=== PATIENT | male | born 1950 | race Caucasian/White ===

== ENCOUNTER 2019-05-09 19:38 | Inpatient (IN) ==
[2019-05-09] MEDS ORDERED: NS 1,000 ML IV PRN (20:23)
--- NOTE | 2019-05-09 20:26 | Diag Imaging Result Doc PS360 ---
EXAM: CT HEAD W/O CONTRAST INDICATION: stroke like TECHNIQUE: This exam was performed using automated exposure control, adjustment of mA or kV according to patient size, and/or use of iterative reconstruction technique. COMPARISON: None. FINDINGS: There are chronic lacunar infarcts involving the right internal capsule and the left caudate head. There is no definite acute infarct given the limited sensitivity of CT versus MRI. There is no discrete intracranial mass, mass effect, or intracranial hemorrhage. The surrounding soft tissues and bony structures are essentially unremarkable. IMPRESSION: A couple of chronic lacunar infarcts bilaterally. No definite acute intracranial pathology by CT. Electronically signed by Prabhjot Gamez 05/09/2019 8:23 PM
[2019-05-09 21:16] LABS: BASO# 0.02 X1000 (0.0-0.2); BASO% 0.3 % (0.0-0.8); EOS# 0.09 X1000 (0.0-0.7); EOS% 1.2 % (0.0-10.0); HEMATOCRIT 35.5 % (42.0-52.0); HEMOGLOBIN 11.8 g/dL (14.0-18.0); IMM GRAN# 0.03 X1000 (0.0-0.04); IMM GRAN% 0.4 % (0.0-0.5); LYMPH# 3.21 X1000 (1.2-3.4); LYMPH% 42.3 % (20.5-51.1); MCH 27.1 PG (27-31); MCHC 33.2 g/dL (33-37); MCV 81.4 FL (81-99); MONO# 0.61 X1000 (0.11-0.59); MPV 10.7 FL (7.4-10.4); NEUT# 3.63 X1000 (1.4-6.5); NEUT% 47.8 % (42.2-75.2); PLT 284 X1000 (130-400); RBC 4.36 XMIL (4.7-6.1); RDW 14.6 % (11.5-14.5); WBC 7.59 X1000 (4.8-10.8)
[2019-05-09 21:24] LABS: URINE SOURCE CLEAN CATCH
[2019-05-09 21:25] LABS: BILIRUBIN URINE NEGATIVE (NEGATIVE); BLOOD URINE NEGATIVE (NEGATIVE); COLOR YELLOW; GLUCOSE URINE 200 mg/dL (NEGATIVE); KETONE URINE NEGATIVE (NEGATIVE); LEUKOCYTES URINE LARGE (NEGATIVE); NITRITE URINE NEGATIVE (NEGATIVE); PH URINE 6.5; PROTEIN URINE TRACE mg/dL (NEGATIVE); SP GRAVITY URINE 1.015; TURBIDITY URINE HAZY (CLEAR); UR EPITHELIAL CELLS <10 /HPF (<10); URINE BACTERIA 4+ /HPF; URINE RBC <10 /HPF (<10); URINE WBC TNTC /HPF (<10); UROBILINOGEN URINE NORMAL (NORMAL)
[2019-05-09 21:28] LABS: INR 0.98; PROTIME 13.1 Seconds (11.0-16.0)
--- NOTE | 2019-05-09 21:35 | Diag Imaging Result Doc PS360 ---
EXAM: CHEST-PORTABLE INDICATION: stroke like symptoms TECHNIQUE: One view COMPARISON: None. FINDINGS: The lungs are grossly clear. There is no discrete pleural fluid collection or pneumothorax. The cardiomediastinal silhouette and central vasculature are grossly unremarkable. IMPRESSION: No evidence of acute pathology by plain radiograph. Electronically signed by Prabhjot Gamez 05/09/2019 9:33 PM
[2019-05-09 21:38] LABS: ALB/GLOB RATIO 2.2; ALBUMIN 4.3 g/dL (3.5-5.0); CALCIUM 9.6 mg/dL (8.8-10.2); CREATININE 1.3 mg/dL (0.7-1.2); POTASSIUM 4.4 mmol/L (3.5-5.1); TOTAL BILIRUBIN 0.43 mg/dL (0.20-1.00); TOTAL PROTEIN 6.3 g/dL (6.3-8.3)
[2019-05-09 21:41] LABS: UR AMPHETAMINES QUAL NONE DETECTED (NONE DETECT); UR BARBITUATES QUAL NONE DETECTED (NONE DETECT); UR BENZODIAZEPIN QUAL NONE DETECTED (NONE DETECT); UR CANNABINOIDS QUAL NONE DETECTED (NONE DETECT); UR COCAINE QUAL NONE DETECTED (NONE DETECT); UR METHADONE QUAL NONE DETECTED (NONE DETECT); UR OPIATES QUAL NONE DETECTED (NONE DETECT); UR OXYCODONE QUAL NONE DETECTED (NONE DETECT); UR PCP QUAL NONE DETECTED (NONE DETECT)
[2019-05-09] MEDS ORDERED: LEVAQUIN 500 MG/D5W 500 MG/100 ML IVPB IV ONE (21:42)
--- NOTE | 2019-05-09 21:45 | PROVIDER DOCUMENTATION ---
This chart was entered by Jennifer Sims Scribe, acting as scribe for Ruy Ivan MD. HPI-Neurological Disorder - General Chief Complaint: Stroke-Like Symptoms Stated Complaint: STROKE SX Time Seen by Provider: 05/09/19 20:23 Source: patient, family Allergies/Adverse Reactions: Patient Allergies Allergy/AdvReac Type Severity Reaction Status Date / Time Penicillins Allergy Mild RASH Verified 11/29/12 00:13 Home Medications: Home Medication List Medication Instructions Recorded Confirmed Last Taken Type Alpha Lipoic Acid 150 mg PO DAILY 11/29/12 11/29/12 11/28/12 08:00 History B,C/Folic/Zinc/Copper Ox/Vit E 1 each PO DAILY 11/29/12 11/29/12 11/28/12 08:00 History [Stress B-Complex Tablet] Chromium Picolinate 1,000 mcg PO DAILY 11/29/12 11/29/12 11/28/12 08:00 History Diphenhydramine [Benadryl] 25 mg PO TID #21 capsule 11/29/12 Unknown Rx Gabapentin 200 mg PO HS 11/29/12 11/29/12 11/28/12 20:00 History Glucosamine/Chondroitin A/MSM 2 each PO QAM 11/29/12 11/29/12 11/29/12 08:00 History [Cartivisc Tablet] Insulin Novolog 70/30 [Novolog Mix 34 unit SUBQ BID 11/29/12 11/29/12 11/28/12 17:00 History 70/30] Lisinopril 10 mg PO DAILY 11/29/12 11/29/12 11/28/12 08:00 History Metformin HCl [Metformin HCl ER] 1,000 mg PO BID 11/29/12 11/29/12 11/28/12 17:00 History Methylprednisolone [Medrol Dosepak] 4 mg PO DIRECTED #1 package 11/29/12 Unknown Rx Pantoprazole [Protonix] 40 mg PO DAILY@0700 #10 tablet 11/29/12 Unknown Rx Pioglitazone [Actos] 30 mg PO DAILY 11/29/12 11/29/12 11/28/12 08:00 History - History of Present Illness-Neuro Nature of Presenting Problem: Pt is a 68 yom who presents to the ED with a cc of stroke like symptoms. Pt reports that he has a stroke 1 yr ago. Pt states that the prior stroke affected his L face and Hand. Reports that today he felt numbness in R face and R hand. pt reports a headache that began 3 days ago. Pt denies any other complaints. Pt speech and hearing is normal. Pt is alert and nontoxic in appearance. Headache Location: reports: frontal Severity: reports: mild Onset/Duration: reports: 3 days ago Timing: reports: gone now Context: reports: none Character of Altered Mental Status: reports: N/A Any recent trauma/injury?: reports: none Character of Deficits: reports: falling (nu) New weakness or altered sensation location:: reports: right facial (numbness), other ( R hand) Cognitive Baseline: alert, oriented x3 Gait Baseline: walks without assistance Associated Symptoms: reports: headache (past3 days) Similar Symptoms Previously?: Yes Recently seen or treated by another doctor?: No Review of Systems - Adult - REVIEW OF SYSTEMS - ADULT Constitutional: reports: no symptoms reported Eyes: reports: no symptoms reported Ears, Nose, Mouth & Throat: reports: no symptoms reported Cardiovascular: reports: no symptoms reported Respiratory: reports: no symptoms reported Gastrointestinal: reports: no symptoms reported Genitourinary: reports: no symptoms reported Musculoskeletal: reports: no symptoms reported Integumentary: reports: no symptoms reported Neurological: reports: see HPI, headache/migraines, numbness (R & L face, and hands.) Psychiatric: reports: no symptoms reported Endocrine: reports: no symptoms reported Hematologic/Lymphatic: reports: no symptoms reported Allergic/Immunologic: reports: no symptoms reported All Other Systems: Reviewed and Negative Past History - Adult - PAST MEDICAL HISTORY-ADULT Review of Records: reports: Old Records Reviewed, Nursing Assessment Review, Medications Reviewed, Social history reviewed & non-contributory. Major Childhood Illnesses: reports: denies history Cardiovascular: reports: denies history Respiratory: reports: denies history Gastrointestinal: reports: denies history Obstetrical/Gynecological: reports: denies history Genitourinary: reports: denies history Musculoskeletal: reports: denies history Neurological: reports: denies history Endocrine/Immune: reports: denies history Other Conditions: reports: denies history - SOCIAL HISTORY Smoking: non-smoker Substance Use: denies Living Situation: family Physical Exam- Neurological - Physical Exam-Neuro Initial Vital Signs Reviewed: Yes General Appearance: alert, no apparent distress Eye Exam: bilateral eye: normal inspection HENMT: moist mucous membranes Head Injury: no evidence of injury Neck: normal inspection Respiratory: chest non-tender, lungs clear, normal breath sounds. negative: crackles, rhonchi Cardiovascular: normal peripheral pulses, regular rate, rhythm, no edema, no gallop, no JVD, no murmur Abdominal Exam: soft Extremity: normal inspection health advisor Exam: normal hearing, normal speech Motor/Sensory: no motor deficit, other (numbness to R face and R hand) Integumentary: normal color, normal turgor, warm/dry. negative: ecchymosis, caio thema Psych/Mental Status: normal mood/affect, normal thought content, normal thought process, oriented x 3 - Glascow Coma Scale Best Eye Response: (4) open spontaneously Best Verbal Response: (5) oriented Best Motor Response: (6) obeys commands Total Glascow Score: 15 Progress - PLAN OF CARE/RESULTS Progress/Plan/Lab Results: Vital Signs - 8 hr 05/09/19 19:47 Temperature 97.7 F Pulse Rate 76 Respiratory Rate 18 Blood Pressure 151/77 O2 Sat by Pulse Oximetry 98 Laboratory Results - last 24 hr 05/09/19 05/09/19 05/09/19 20:48 20:48 20:48 WBC 7.59 RBC 4.36 L Hgb 11.8 L Hct 35.5 L MCV 81.4 MCH 27.1 MCHC 33.2 RDW Std Deviation 14.6 H Plt Count 284 MPV 10.7 H Immature Gran % (Auto) 0.4 Neut % (Auto) 47.8 Lymph % (Auto) 42.3 [place] % (Auto) 8.0 Eos % (Auto) 1.2 Baso % (Auto) 0.3 Immature Gran # (Auto) 0.03 Neut # (Auto) 3.63 Lymph # (Auto) 3.21 [place] # (Auto) 0.61 H Eos # (Auto) 0.09 Baso # (Auto) 0.02 PT 13.1 INR 0.98 PTT (Actin FS) 30.0 Sodium 137 Potassium 4.4 Chloride 97 L Carbon Dioxide 25 Anion Gap 15 BUN 21 Creatinine 1.3 H Estimated GFR/1.73 m2 55 BUN/Creatinine Ratio 16 Glucose 336 H POC Glucose Calculated Osmolality 290 Calcium 9.6 Total Bilirubin 0.43 AST 16 ALT 23 Alkaline Phosphatase 37 Troponin T High Sens Total Protein 6.3 Albumin 4.3 Globulin 2.0 Albumin/Globulin Ratio 2.2 Urine Source Urine Color Urine Turbidity Urine pH Ur Specific Zirconia Urine Protein Ur Glucose (Stick) Ur Ketones (Stick) Urine Blood Urine Nitrite Urine Bilirubin Urobilinogen Dipstick Urine Leukocytes Urine WBC (Auto) Urine RBC (Auto) U Epithel Cells (Auto) Urine Bacteria (Auto) Urine Opiates Screen Ur Oxycodone Screen Ur Methadone, Qual Ur Barbiturates Screen Ur Phencyclidine Scrn Ur Amphetamines Screen U Benzodiazepines Scrn Urine Cocaine Screen U Cannabinoids Screen 05/09/19 05/09/19 05/09/19 20:48 21:07 21:13 WBC RBC Hgb Hct MCV MCH MCHC RDW Std Deviation Plt Count MPV Immature Gran % (Auto) Neut % (Auto) Lymph % (Auto) Child[place] % (Auto) Eos % (Auto) Baso % (Auto) Immature Gran # (Auto) Neut # (Auto) Lymph # (Auto) Child[place] # (Auto) Eos # (Auto) Baso # (Auto) PT INR PTT (Actin FS) Sodium Potassium Chloride Carbon Dioxide Anion Gap BUN Creatinine Estimated GFR/1.73 m2 BUN/Creatinine Ratio Glucose POC Glucose 286 H Calculated Osmolality Calcium Total Bilirubin AST ALT Alkaline Phosphatase Troponin T High Sens 24 H Total Protein Albumin Globulin Albumin/Globulin Ratio Urine Source CLEAN CATCH Urine Color YELLOW Urine Turbidity HAZY Urine pH 6.5 Ur Specific Zirconia 1.015 Urine Protein TRACE A Ur Glucose (Stick) 200 A Ur Ketones (Stick) NEGATIVE Urine Blood NEGATIVE Urine Nitrite NEGATIVE Urine Bilirubin NEGATIVE Urobilinogen Dipstick NORMAL Urine Leukocytes LARGE A Urine WBC (Auto) TNTC A Urine RBC (Auto) <10 U Epithel Cells (Auto) <10 Urine Bacteria (Auto) 4+ Urine Opiates Screen Ur Oxycodone Screen Ur Methadone, Qual Ur Barbiturates Screen Ur Phencyclidine Scrn Ur Amphetamines Screen U Benzodiazepines Scrn Urine Cocaine Screen U Cannabinoids Screen 05/09/19 21:13 WBC RBC Hgb Hct MCV MCH MCHC RDW Std Deviation Plt Count MPV Immature Gran % (Auto) Neut % (Auto) Lymph % (Auto) Child[place] % (Auto) Eos % (Auto) Baso % (Auto) Immature Gran # (Auto) Neut # (Auto) Lymph # (Auto) Child[place] # (Auto) Eos # (Auto) Baso # (Auto) PT INR PTT (Actin FS) Sodium Potassium Chloride Carbon Dioxide Anion Gap BUN Creatinine Estimated GFR/1.73 m2 BUN/Creatinine Ratio Glucose POC Glucose Calculated Osmolality Calcium Total Bilirubin AST ALT Alkaline Phosphatase Troponin T High Sens Total Protein Albumin Globulin Albumin/Globulin Ratio Urine Source Urine Color Urine Turbidity Urine pH Ur Specific Zirconia Urine Protein Ur Glucose (Stick) Ur Ketones (Stick) Urine Blood Urine Nitrite Urine Bilirubin Urobilinogen Dipstick Urine Leukocytes Urine WBC (Auto) Urine RBC (Auto) U Epithel Cells (Auto) Urine Bacteria (Auto) Urine Opiates Screen NONE DETECTED Ur Oxycodone Screen NONE DETECTED Ur Methadone, Qual NONE DETECTED Ur Barbiturates Screen NONE DETECTED Ur Phencyclidine Scrn NONE DETECTED Ur Amphetamines Screen NONE DETECTED U Benzodiazepines Scrn NONE DETECTED Urine Cocaine Screen NONE DETECTED U Cannabinoids Screen NONE DETECTED Orders Category Date Time Status Cardiac Monitoring DIRECTED Care 05/09/19 20:23 Active Finger Stick Blood Sugar (ED) DIRECTED Care 05/09/19 20:23 Active Oxygen Therapy- ED Nursing DIRECTED Care 05/09/19 20:23 Active Saline Loc NOW Care 05/09/19 20:23 Active CHEST-PORTABLE [RAD] Stat Exams 05/09/19 20:[address] HEAD W/O CONTRAST [CT] Stat Exams 05/09/19 19:51 Completed CBC WITH ELECTRONIC DIFF [HEME] Stat Lab 05/09/19 20:48 Completed COMPREHENSIVE METABOLIC PANEL [CHEM] Stat Lab 05/09/19 20:48 Completed PROTIME WITH INR [COAG] Stat Lab 05/09/19 20:48 Completed PTT [COAG] Stat Lab 05/09/19 20:48 Completed TROPONIN T HIGH SENSITIVITY Stat Lab 05/09/19 20:48 Completed URINALYSIS W/POSS RFLX CULT [URINALYSIS] Stat Lab 05/09/19 21:13 Completed URINE CULTURE [RM] Routine Lab 05/09/19 21:13 Received URINE DRUG SCREEN Stat Lab 05/09/19 21:13 Completed 0.9% Sodium Chloride Inj [Ns] 1,000 ml Med 05/09/19 20:23 Active IV 125 mls/hr Levofloxacin 500 mg/D5w [Levaquin 500 mg/D5w] Med 05/09/19 21:42 Discontinued 500 mg in 100 ml IV NOW EKG [EKG] Stat Ther 05/09/19 20:23 Ordered At recheck, pt notes that he has had foul odor to his urine for weeks and that his pcp has been trying to treat him for infection. Result Diagrams: 05/09/19 20:48 05/09/19 20:48 - EKG 1 Time of EKG reading by physician:: 20:35 EKG Read and Signed by:: Ruy Ivan EKG Interpretation (*Must complete 3 of following elements*): Abnormal (septal infarct,) Rate: 73 Rhythm: NSR [place]: normal QRS: other (low voltage) AK Interval: normal ST Wave: normal Prior EKG Comparison: no prior EKG - CT/MRI 1 CT Study: Head Impression: See EMR Report (EXAM: CT HEAD W/O CONTRAST INDICATION: stroke like TECHNIQUE: This exam was performed using automated exposure control, adjustment of mA or kV according to patient size, and/or use of iterative reconstruction technique. COMPARISON: None. FINDINGS: There are chronic lacunar infarcts involving the right internal capsule and the left caudate head. There is no definite acute infarct given the limited sensitivity of CT versus MRI. There is no discrete intracranial mass, mass effect, or intracranial hemorrhage. The surrounding soft tissues and bony structures are essentially unremarkable. IMPRESSION: A couple of chronic lacunar infarcts bilaterally. No definite acute intracranial pathology by CT. Electronically signed by Prabhjot Gamez 05/09/2019 8:23 PM 05/09/192022 Interpreting Physician: Prabhjot Gamez MD Dictated Date/Time: 05/09/192021 cc: Ruy Ivan MD; Carmen Ho MD) - CONSULTS/PCP/HOSPITALIST Notification #1 *Consult/PCP/Hospitalist*: Dr. Jason, neurologist in [facility] Time Discussed: 21:08 Reason/Comments: Discuss pt condition Consult Disposition: other (No TPA, No transfer, Continue Aspirin and admit here.) #2 Consult: Dr Zabala Time Discussed: 21:44 Consult Disposition: Will see in ED, Admit Departure - Departure Date of Disposition Decision: 05/09/19 Time of Disposition Decision: 21:39 DIAGNOSIS: UTI (urinary tract infection), Ischemic stroke, HTN (hypertension), Uncontrolled diabetes mellitus, Elevated troponin Disposition: ADMITTED INPATIENT 09 Certified Medical Emergency: Emergent Condition: Fair Referrals and Follow-Ups: Carmen Ho MD [Primary Care Provider] - - Critical Care Note This patient required my direct & personal management of CC.: No Attestation - Physician/ NATHALIE Attestation Patient care was provided by Advanced Practice Provider:: No The physician spent face to face time with patient:: Yes Advanced Practice Provider documentation review:: Supervising physician onsite and consulted in the evaluation and care of this patient. The physician did have a face to face encounter with the patient. - NIH Stroke Scale NIH Type: Initial Evaluation Level of Consciousness: 0-Alert LOC Questions (ask month and age): 0-Answers Both Correctly LOC Commands (ask to open & close eyes;make a fist, let go): 0-Obeys Both Correctly Best Gaze (horizontal eye movement): 0-Normal Visual (use finger movement, counting or visual threat): 0-No Visual Loss Facial Palsy (show teeth or raise eyebrows & close eyes tght: 0-Symmetrical Movement Motor Function-left arm: 0-Normal Motor Function-right arm: 0-Normal Motor Function-left le-Normal Motor Function-right le-Normal Limb Ataxia([id number], or heel to jacome): 0-No Ataxia Sensory(pin prick to face,arms,trunk,legs-compare side/side): 1-Mild to Moderate Decrease in Sensation (stroke score 1) Best Language(name item/read sentence.Ex-Down to Earth): 0-No Aphasia Dysarthria(Pt read words or say words Ex.Mama,Tip-Top,Thanks: 0-Normal Articulation Extinction and Inattention: 0-Normal NIH Total Score: 1 Modified Katherine Score Criteria: 1-no significant disability despite symptoms Stroke tPA Guidelines - Inclusion Criteria for IV tPA 18 years old or older: Yes Ischemic stroke with measurable deficit: Yes Onset <3 hours ago *OR* 3-4.5 hours ago: Yes - Exclusion Criteria for IV tPA Evidence of intracranial hemorrhage on CT: No Presentation suggest SAH: No CT reveals defined area of hypodensity: No Evidence of AVM, neoplasm, aneurysm: No Seizure at stroke onset: No Active internal bleeding or acute trauma: No This chart was documented by the indicated scribe, (Jennifer Sims Scribe) and accurately reflects the services I performed and decisions made by me, Ruy Ivan MD, as attested by the provider's signature.
--- NOTE | 2019-05-10 00:28 | EKG Report ---
Test Performed on : 05/09/2019 8:35:58 PM Test Reason : Stroke like symptoms Blood Pressure : / mmHG Vent. Rate : 073 BPM Atrial Rate : 073 BPM P-R Int : 190 ms QRS Dur : 092 ms QT Int : 380 ms P-R-T Axes : 058 -04 060 degrees QTc Int : 418 ms Normal sinus rhythm. Low voltage QRS Septal infarct , age undetermined Abnormal ECG No previous ECGs available Unconfirmed Result
--- NOTE | 2019-05-10 00:30 | HISTORY AND PHYSICAL ---
PRIMARY CARE PHYSICIAN: Dr. Carmen Ho. CHIEF COMPLAINT: Right-sided numbness. HISTORY OF PRESENTING ILLNESS: A 68-year-old male with a history of diabetes mellitus type 2, CVA, hypertension, had presented to emergency department with one-day history of a right-sided numbness. He states that his face was numb and also his right upper extremity was numb. He was evaluated in the emergency department. His case was discussed with neurologist in [place] who recommended patient be admitted and be placed on aspirin and have an MRI done in the morning. At the time of my examination, patient denied any fever, chills, chest pain, shortness of breath, hemoptysis, melena, or weight changes, but complained of light headache and numbness which seems to have improved. PAST MEDICAL HISTORY: Includes diabetes mellitus type 2, CVA, hypertension. PAST SURGICAL HISTORY: Cervical fusion, left shoulder surgery. ALLERGIES: No known drug allergies. CURRENT MEDICATIONS: He does not recall and nursing staff will reconcile. SOCIAL HISTORY: No history of smoking, alcohol or illicit drug use. FAMILY HISTORY: No history of coronary artery disease. REVIEW OF SYSTEMS: Fourteen point review of systems is as listed in HPI. Other systems negative. PHYSICAL EXAMINATION: GENERAL: Cooperative, friendly male. He is resting comfortably now. VITAL SIGNS: Temperature 97.7 degrees, pulse 76, respiration 18, blood pressure 151/77. HEENT: Atraumatic, normocephalic. Extraocular movements intact. PERRLA. NECK: No masses. CHEST: Clear to auscultation. CARDIOVASCULAR: Regular rate and rhythm. ABDOMEN: Soft. Positive bowel sounds. EXTREMITIES: No edema. NEUROLOGIC: He is awake, alert, oriented x3. Speech is intact. Strength 5/5 all extremities. GENITOURINARY: No bladder distention. SKIN: Warm. LABORATORIES AND STUDIES: WBC 7.59, hemoglobin 11.8, hematocrit 35.5, platelets 284,000. Sodium 137, potassium 4.4, chloride 97, CO2 is 25, BUN is 21, creatinine is 1.3, glucose is 336. UA shows leukocytes. CT of the head shows chronic lacunar infarcts bilaterally. No acute intracranial pathology. ASSESSMENT: A 68-year-old male with a history of diabetes mellitus type 2, cerebrovascular accident, hypertension, had presented to the emergency department with 1-day history of having right upper extremity numbness. He was evaluated the emergency department. His case was discussed with Neurology who recommended patient be on aspirin and be admitted for further management. 1. Transient ischemic attack. We will need to rule out cerebrovascular accident. 2. Suspected urinary tract infection. Had been on antibiotics recently. 3. Diabetes mellitus type 2. 4. Hypertension. PLAN: 1. We will admit patient to medical floor with telemetry. 2. We will continue with stroke workup. 3. We will consult Neurology. 4. We will check a carotid duplex and MRI of the brain. 5. We will check on urine culture. 6. We will monitor blood glucose, put patient on sliding scale insulin regimen. 7. Monitor blood pressure closely. 8. Put patient on DVT prophylaxis with SCD. 9. We will continue to follow, reassess and make further recommendation based on patient's clinical course. cc: Raghu Zabala MD MTDD
[2019-05-10 06:05] VITALS: BP 153/90
[2019-05-10] MEDS ORDERED: HUMULIN R SUBQ SCH (07:00)
--- NOTE | 2019-05-10 08:57 | Diag Imaging Result Doc PS360 ---
EXAM: MRI BRAIN W/WO CONTRAST 05/10/2019 HISTORY: stroke TECHNIQUE: T1 sagittal, axial and post gadolinium-enhanced axial with coronal reformation, axial T2, FLAIR, DWI and coronal gradient echo. COMMENT: There are multiple punctate foci of increased T2-weighted signal intensity adjacent to the atria of the lateral ventricles bilaterally and also in the thalamus or adjacent internal capsule on the right. There is an apparent small lacune adjacent to the head of the caudate nucleus on the left. This was also visible on the CT of 05/09/2019. There are no previous MR studies. There is no evidence of restricted diffusion. There is no evidence of bleed or abnormal extra-axial fluid collection. 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 This may be a venous angioma. No evidence of hemosiderin deposition is present to suggest previous bleed. Otherwise, there is no evidence of abnormal gadolinium enhancement. IMPRESSION: Chronic microvascular changes as described above. 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 Electronically signed by Williams Mo 05/10/2019 8:54 AM
[2019-05-10] MEDS ORDERED: ASPIRIN PO SCH (09:00)
[2019-05-10] MEDS ORDERED: NORVASC PO SCH (09:00)
[2019-05-10 09:32] LABS: IMM GRAN# 0.05 X1000 (0.0-0.04); IMM GRAN% 0.4 % (0.0-0.5); RDW 14.8 % (11.5-14.5)
[2019-05-10 10:16] LABS: CALCIUM 10.1 mg/dL (8.8-10.2); CREATININE 1.4 mg/dL (0.7-1.2); POTASSIUM 4.5 mmol/L (3.5-5.1)
[2019-05-10 11:18] LABS: BASO# 0.03 X1000 (0.0-0.2); BASO% 0.2 % (0.0-0.8); EOS# 0.07 X1000 (0.0-0.7); EOS% 0.6 % (0.0-10.0); HEMATOCRIT 38.1 % (42.0-52.0); HEMOGLOBIN 12.4 g/dL (14.0-18.0); LYMPH# 2.76 X1000 (1.2-3.4); LYMPH% 22.1 % (20.5-51.1); MCH 26.6 PG (27-31); MCHC 32.5 g/dL (33-37); MCV 81.8 FL (81-99); MONO# 1.15 X1000 (0.11-0.59); MONO% 9.2 % (1.7-9.3); MPV 10.5 FL (7.4-10.4); NEUT# 8.41 X1000 (1.4-6.5); NEUT% 67.5 % (42.2-75.2); PLT 307 X1000 (130-400); RBC 4.66 XMIL (4.7-6.1); WBC 12.47 X1000 (4.8-10.8)
[2019-05-10 11:43] LABS: HEMOGLOBIN A1C 8.2 % (4.8-6.0)
--- NOTE | 2019-05-10 12:38 | DISCHARGE SUMMARY ---
ADMISSION DATE: 05/09/2019 DISCHARGE DATE: 05/10/2019 DISCHARGE DIAGNOSES: 1. Transient ischemic attack. 2. Suspected urinary tract infection. 3. Diabetes mellitus type 2. 4. Hypertension. CONSULTATIONS: None. STUDIES PERFORMED: 1. Brain MRI showed chronic microvascular changes as described above but no acute intracranial abnormalities noted. 2. Chest x-ray done on admission showed no evidence of acute pathology by plain radiograph. HOSPITAL COURSE: This is a 68-year-old male with history diabetes mellitus type 2, CVA, hypertension who presented to the emergency department with 1-day history of right-sided numbness. Also, he noticed right upper extremity was numb as well so that is the reason why this patient was admitted to this hospital. The MRI of the brain did not show any stroke. His symptoms have resolved completely so, at this point, he is going to be discharged in stable condition. He is supposed to be seen by Dr. Ho his primary care physician in the office in a week. There is also a carotid ultrasound that is not available yet but is going to be requested by his primary care doctor. DISCHARGE PHYSICAL EXAMINATION: Vital Signs: Temperature 98.9 degrees, heart rate 87, respiratory rate 18, blood pressure 153/90. O2 saturation 94% on room air examination. General: This is a 68-year-old male, lying in bed, in no acute distress. Cardiovascular: S1, S2 heard. No murmurs, gallops, or rubs. Regular rate and rhythm. Respiratory: Exam clear bilaterally to auscultation. No work of breathing or using accessory muscles. Abdomen: Soft. Nontender to palpation. Bowel sounds present. No organomegaly. Extremities: No clubbing, cyanosis, or edema. Peripheral pulses present in both legs. Neurological: The patient is alert, oriented x3. Moves 4 extremities. LABORATORY DATA: Reviewed. DISCHARGE DISPOSITION: Home to self-care. DISCHARGE INSTRUCTIONS: Follow up with his primary care physician, Dr. Carmen Ho in a week. LIST OF MEDICATIONS: 1. Amlodipine 5 mg 1 tablet p.o. daily. 2. Aspirin 325 mg 1 tablet p.o. daily. 3. TriCor 1 tablet p.o. daily. 4. Actos 30 mg 1 tablet p.o. daily. cc: Arsalan Whittington MD
[2019-05-10] MEDS ORDERED: PEPCID PO SCH (21:00)
[2019-05-11] MEDS ORDERED: NORVASC PO SCH (09:00)
[2019-05-11] MEDS ORDERED: ACTOS PO SCH (09:00)
== END 2019-05-10 12:04 | disposition home or self-care (01) | DRG 69 ==
LOC: ED 19:38 → EDIPHOLD 23:40 → SUATTDRO 23:40 → 4N 05-10 09:21
PROVIDERS: ATTEND Internal Medicine